=== PATIENT | male | born 1955 | race Caucasian/White ===

== ENCOUNTER → 2017-05-16 | Outpatient (CLI) | payer BC ==
[~2017-05-16] MED LIST: ASPIRIN 81M81 MG/TA2 PO; BUFFERED ASPIR325 M1 PO; CELEBREX 200MG200 MG PO; CLOPIDOGREL; CRESTOR; FISH OIL1 IU PO; MILK OF MA400 MG/5 M PO; MVI; NEURONTIN100 MG/CAP PO; NITROSTAT0.4 MG/TAB SL; NORCO 325 MG-7.1 TAB PO; SENOKOT8.6 MG PO; ULTRAM 50MG TAB50 MG PO; XARELTO10 MG PO; [UNRECOGNIZED DRUG - OTHER]
== END ==
LOC: BHSO 15:54
DX: F31.73 Bipolar disorder, in partial remission, most recent episode manic (principal)

== ENCOUNTER → 2017-11-07 | Outpatient (CLI) | payer BC | LOC: BHSO 15:44 | DX: F33.1 Major depressive disorder, recurrent, moderate (principal) ==

== ENCOUNTER → 2018-06-25 | Outpatient (CLI) | payer MEDICARE, BC | LOC: BHSO 10:34 | DX: F31.81 Bipolar II disorder (principal) ==

== ENCOUNTER → 2018-12-24 | Outpatient (CLI) | payer MEDICARE, BC | LOC: BHSO 16:18 | DX: F31.81 Bipolar II disorder (principal) | CPT/HCPCS: G0463 ==

== ENCOUNTER → 2019-03-19 | Outpatient (CLI) | payer MEDICARE, BC | LOC: BHSO 15:49 | DX: F31.81 Bipolar II disorder (principal) | CPT/HCPCS: G0463 ==

== ENCOUNTER → 2019-04-05 | Outpatient (CLI) | payer MEDICARE, BC | LOC: BHSO 11:25 | DX: F31.81 Bipolar II disorder (principal) | CPT/HCPCS: G0463 ==

== ENCOUNTER → 2019-05-04 | Outpatient (CLI) | payer MEDICARE, BC | LOC: BHSO 15:39 | DX: F31.73 Bipolar disorder, in partial remission, most recent episode manic (principal) | CPT/HCPCS: G0463 ==

== ENCOUNTER → 2019-06-08 | Outpatient (CLI) | payer MEDICARE, BC | LOC: BHSO 14:25 | DX: F31.74 Bipolar disorder, in full remission, most recent episode manic (principal) | CPT/HCPCS: G0463 ==

== ENCOUNTER → 2019-07-01 | Outpatient (CLI) | payer MEDICARE, BC | LOC: BHSO 15:54 | DX: F31.76 Bipolar disorder, in full remission, most recent episode depressed (principal) | CPT/HCPCS: G0463 ==

== ENCOUNTER → 2019-09-02 | Outpatient (CLI) | payer MEDICARE, BC | LOC: BHSO 15:44 | DX: F31.75 Bipolar disorder, in partial remission, most recent episode depressed (principal) | CPT/HCPCS: G0463 ==

== ENCOUNTER → 2020-05-25 | Outpatient (CLI) | payer MEDICARE, BC | LOC: BHSO 15:52 | DX: F31.75 Bipolar disorder, in partial remission, most recent episode depressed (principal) | CPT/HCPCS: G0463 ==

== ENCOUNTER → 2020-09-01 | Outpatient (CLI) | payer MEDICARE, BC | LOC: BHSO 16:21 | DX: F31.76 Bipolar disorder, in full remission, most recent episode depressed (principal) | CPT/HCPCS: G0463 ==